=== PATIENT | male | born 1935 | race Caucasian/White ===

== ENCOUNTER 2016-07-10 09:56 | Emergency (ER) | payer BC ==
[~2016-07-10] VITALS: Ht 167.6 cm; Wt 72.6 kg
--- NOTE | 2016-07-10 11:14 | NUR ---
dr moore explained ct scan results to patient. PMD CALLED BY DR MOORE - PHONE REPORT ON SCAN RESULTS RENDERED. PT TO SEE PMD ON JUL [id number]. DISC COPY AND CT SCAN REPORT RENDERED, REPORT GIVEN TO EMT , D/CD HOME VIA PRIVATE AMBULANCE IN STABLE CONDITION. PT REMAINS AWAKE, ALERT AND VERBALLY RESPONSIVE.
[2016-07-10 11:18] VITALS: BP 145/72
== END 2016-07-10 11:19 | disposition home or self-care (01) ==
LOC: ER 09:56
DX: S09.90XA Unspecified injury of head, initial encounter (principal); R51 Headache; I10 Essential (primary) hypertension; W18.30XA Fall on same level, unspecified, initial encounter; Y93.89 Activity, other specified; Y99.8 Other external cause status; Y92.89 Other specified places as the place of occurrence of the external cause
CPT/HCPCS: 70450; A4663

== ENCOUNTER 2016-07-15 09:01 | Emergency (ER) | payer BC ==
[~2016-07-15] VITALS: Ht 162.6 cm; Wt 62.6 kg
[2016-07-15] MEDS ORDERED: SENN8.6T73 PO (09:39)
[2016-07-15] MEDS ORDERED: TRAZ-144 PO (09:39)
[2016-07-15] MEDS ORDERED: LOSA25TA13 PO (09:39)
[2016-07-15] MEDS ORDERED: [UNRECOGNIZED DRUG - OTHER] IM (09:39)
[2016-07-15] MEDS ORDERED: VITAMIN A AND D TOP (09:39)
[2016-07-15] MEDS ORDERED: MENT113O TOP (09:39)
[2016-07-15] MEDS ORDERED: LATA2.5D7 OP (09:39)
[2016-07-15] MEDS ORDERED: LOPE2CAP40 PO (09:39)
[2016-07-15] MEDS ORDERED: PRED10TA PO (09:39)
[2016-07-15] MEDS ORDERED: HYDR-552 PO (09:39)
[2016-07-15] MEDS ORDERED: CLOB15OI8 TOP (09:39)
[2016-07-15] MEDS ORDERED: NIAC500T7 PO (09:39)
[2016-07-15] MEDS ORDERED: ACET-2154 PO (09:39)
[2016-07-15] MEDS ORDERED: FINA5TAB11 PO (09:39)
[2016-07-15] MEDS ORDERED: [UNRECOGNIZED DRUG - CODE] PO (09:39)
[2016-07-15] MEDS ORDERED: FAMO20TA8 PO (09:39)
[2016-07-15] MEDS ORDERED: BRIM5DRO2 OP (09:39)
[2016-07-15] MEDS ORDERED: DOXY100C2 PO (09:39)
[2016-07-15] MEDS ORDERED: GUAI-925 PO (09:39)
[2016-07-15] MEDS ORDERED: CA C PO (09:39)
[2016-07-15] MEDS ORDERED: MAGN400O4 PO (09:39)
[2016-07-15] MEDS ORDERED: ZOLP5TAB2 PO (09:39)
--- NOTE | 2016-07-15 12:04 | NUR ---
Patient discharged to home in stable conditon. Written and verbal after care instructions given. Patient verbalizes understanding of instructions.pt wheel chaired to car. pt caregiver accompanied with pt. copies and cd of the images provided per request. pt will follow up with neurologist.
[2016-07-15 12:08] VITALS: BP 101/65
== END 2016-07-15 12:09 | disposition home or self-care (01) ==
LOC: ER 09:01
DX: M54.5 Low back pain (principal); I10 Essential (primary) hypertension; R51 Headache
CPT/HCPCS: 70450; 72125; 72131; 73200; A4663

== ENCOUNTER 2016-07-18 09:49 | Inpatient (IN) | payer BC ==
[~2016-07-18] VITALS: Ht 172.7 cm; Wt 70.3 kg
[~2016-07-18 09:49] MED LIST: ACET-2154 PO; BRIM5DRO2 OP; CA C PO; CLOB15OI8 TOP; DOXY100C2 PO; FAMO20TA8 PO; FINA5TAB11 PO; GUAI-925 PO; HYDR-552 PO; LATA2.5D7 OP; LOPE2CAP40 PO; LOSA25TA13 PO; MAGN400O4 PO; MENT113O TOP; NIAC500T7 PO; PRED10TA PO; SENN8.6T73 PO; TRAZ-144 PO; VITAMIN A AND D TOP; ZOLP5TAB2 PO; [UNRECOGNIZED DRUG - CODE] PO; [UNRECOGNIZED DRUG - OTHER] IM
[2016-07-18] MEDS ORDERED: BRIM5DRO2 EACHEYE (10:23)
[2016-07-18] MEDS ORDERED: [UNRECOGNIZED DRUG - CODE] PO (10:23)
[2016-07-18 10:43] LABS: BASOPHILS # (AUTO) 0.1 K/uL (0.0-8.0); BASOPHILS % (AUTO) 0.3 % (0.0-2.0); EOSINOPHILS # (AUTO) 0.1 K/uL (0.0-0.7); EOSINOPHILS % (AUTO) 0.6 % (0.0-7.0); HEMATOCRIT 37.4 % (36.7-47.1); HEMOGLOBIN 13.2 g/dL (12.5-16.3); LYMPHOCYTES # (AUTO) 1.6 K/uL (20.0-40.0); LYMPHOCYTES % (AUTO) 8.9 % (20.5-51.5); MEAN CORPUSCULAR HEMOGLOBIN 32.9 uug (23.8-33.4); MEAN CORPUSCULAR HGB CONC 35 g/dL (32.5-36.3); MEAN CORPUSCULAR VOLUME 93.2 fL (73.0-96.2); MONOCYTES # (AUTO) 0.2 K/uL (2.0-10.0); MONOCYTES % (AUTO) 1.2 % (0.0-11.0); NEUTROPHILS # (AUTO) 16.5 K/uL (1.8-8.9); PLATELET COUNT (AUTO) 254 K/uL (152-348); RED BLOOD CELL COUNT(AUTO) 4.02 MIL/uL (4.06-5.63); RED CELL DISTRIBUTION WIDTH 13.5 % (12.1-16.2); WHITE BLOOD COUNT (AUTO) 18.5 K/uL (3.6-10.2)
[2016-07-18 10:50] LABS: CALCIUM 8.5 mg/dL (8.5-10.1); CREATININE 0.9 mg/dL (0.6-1.3); POTASSIUM 3.8 mmol/L (3.5-5.1)
[2016-07-18 10:58] LABS: TROPONIN I < 0.017 ng/mL (0.00-0.056)
[2016-07-18 11:03] LABS: BILIRUBIN,DIRECT 0.2 mg/dL (0.0-0.2); BILIRUBIN,TOTAL 0.8 mg/dL (0.2-1.0); TOTAL PROTEIN, SERUM 5.8 g/dL (6.4-8.2)
[2016-07-18 11:06] LABS: LACTIC ACID 1.9 mmol/L (0.4-2.0)
[2016-07-18] MEDS ORDERED: PIPERACILLIN SODIUM/TAZOBACTAM 3.375 G in IV DEXTROSE 5% 50 ML IV ONE (11:15)
[2016-07-18 11:22] LABS: BAND % (MANUAL) 15 % (0-10); LYMPHOCYTES % (MANUAL) 12 % (20-40); MONOCYTES % (MANUAL) 3 % (2-10); NEUTROPHILS % (MANUAL) 70 % (42-75)
[2016-07-18 11:23] LABS: PLATELET ESTIMATE ADEQUATE
[2016-07-18 11:30] LABS: *BILIRUBIN,URIN NEGATIVE (NEGATIVE); *BLOOD, URINE Trace-intact (NEGATIVE); *CLARITY,URINE CLEAR (CLEAR); *COLOR,URINE YELLOW (YELLOW); *KETONES,URINE NEGATIVE (NEGATIVE); *PROTEIN,URINE TRACE (NEGATIVE); NITRITE, URINE NEGATIVE (NEGATIVE); UGLUCOSE NEGATIVE (NEGATIVE)
[2016-07-18] MEDS ORDERED: IV NORMAL SALINE 1000 ML BAG IV ONE (11:30)
[2016-07-18] MEDS ORDERED: PIPERACILLIN/TAZOBACTAM/D5W 50 ML IV ONE (11:36)
[2016-07-18 11:43] LABS: LEUKOCYTE ESTERASE ,URINE TRACE (NEGATIVE)
[2016-07-18 11:44] LABS: BACTERIA,URINE MODERATE /HPF (NONE SEEN); SQUAMOUS EPITHELIAL CELL,UR FEW /HPF (NONE SEEN)
[2016-07-18 11:45] LABS: MUCUS,URINE FEW /LPF (0-FEW)
[2016-07-18] MEDS ORDERED: HYDROCORTISONE SOD SUCCINATE 100 MG/2 ML VIAL IV ONE ×2 (11:45→12:01)
[2016-07-18] MEDS ORDERED: LEVOFLOXACIN 750 MG/D5W 150 ML PIGGYBACK IV ONE (12:00)
[2016-07-18] MEDS ORDERED: LEVOFLOXACIN 750MG/D5W 150 ML IV ONE (12:42)
[2016-07-18] MEDS ORDERED: HYDROCODONE/APAP 10-325 MG TABLET PO PRN (13:15)
[2016-07-18] MEDS ORDERED: ZOLPIDEM 5 MG TABLET PO SCH (13:15)
[2016-07-18] MEDS ORDERED: ACETAMINOPHEN 325 MG TABLET PO PRN (13:15)
[2016-07-18] MEDS ORDERED: SENNOSIDES 1 TABLET PO SCH (13:15)
[2016-07-18] MEDS ORDERED: HYDROCODONE/APAP 5-325MG TABLET PO PRN (13:15)
[2016-07-18] MEDS ORDERED: ACETAMINOPHEN 325 MG TABLET PO SCH (13:15)
[2016-07-18] MEDS ORDERED: ZOLPIDEM 5 MG TABLET PO PRN (13:15)
[2016-07-18] MEDS ORDERED: ONDANSETRON 4 MG/2 ML VIAL IV PRN (13:15)
[2016-07-18] MEDS ORDERED: Z GUARD REMEDY PASTE 57 GM TUBE TOP PRN (13:15)
[2016-07-18] MEDS ORDERED: MAGNESIUM HYDROXIDE 30 ML LIQUID UDC PO PRN (13:15)
[2016-07-18] MEDS: IV NS 1000 ML 1,000 ML IV PRN (15:11)
[2016-07-18 16:00] VITALS: BP 113/66
[2016-07-18] MEDS ORDERED: VANCOMYCIN IV 1 G in PREMIXED 0 EACH IV SCH ×2 (16:30→18:00)
[2016-07-18] MEDS ORDERED: NIACINAMIDE 500 MG TABLET PO SCH (17:00)
[2016-07-18] MEDS ORDERED: NIACIN 500 MG TABLET PO SCH (17:00)
[2016-07-18] MEDS ORDERED: PIPERACILLIN SODIUM/TAZOBACTAM 4.5 G in IV DEXTROSE 5% 50 ML IV SCH (17:00)
[2016-07-18] MEDS ORDERED: FLUCONAZOLE 200 MG/NS 100ML IV 200 MG in PREMIXED 1 EACH IV SCH (17:00)
[2016-07-18] MEDS: FAMOTIDINE 20 MG TABLET PO SCH (17:52)
[2016-07-18] MEDS: NIACIN 500 MG TABLET PO SCH (17:52)
[2016-07-18] MEDS: CLOBETASOL PROPIONATE 0.05% OINT 15 GM TUBE TOP SCH (17:53)
[2016-07-18] MEDS ORDERED: FLUCONAZOLE 200 MG/NS 100ML IV 100 MG in PREMIXED 1 EACH IV SCH (19:30)
[2016-07-18] MEDS ORDERED: LATANOPROST OPHT DROP 2.5 ML BOTTLE OP SCH (21:00)
[2016-07-18] MEDS ORDERED: LATANOPROST OPHT DROP 2.5 ML BOTTLE EACHEYE SCH (21:00)
[2016-07-18] MEDS: NYSTATIN SUSPENSION 5 ML LIQUID UDC PO SCH (21:56)
[2016-07-18] MEDS: PIPERACILLIN SODIUM/TAZOBACTAM 4.5 G in IV DEXTROSE 5% 50 ML IV SCH (23:04)
[2016-07-19 00:36] VITALS: BP 113/62
[2016-07-19 04:00] VITALS: BP 160/96
[2016-07-19] MEDS: PIPERACILLIN SODIUM/TAZOBACTAM 4.5 G in IV DEXTROSE 5% 50 ML IV SCH ×2 (05:03→12:37)
[2016-07-19] MEDS: IV NS 1000 ML 1,000 ML IV PRN (06:22)
[2016-07-19 06:43] LABS: EOSINOPHILS # (AUTO) 0.1 K/uL (0.0-0.7); EOSINOPHILS % (AUTO) 0.4 % (0.0-7.0); HEMATOCRIT 39.2 % (36.7-47.1); HEMOGLOBIN 13.5 g/dL (12.5-16.3); LYMPHOCYTES # (AUTO) 2.4 K/uL (20.0-40.0); LYMPHOCYTES % (AUTO) 14.1 % (20.5-51.5); MEAN CORPUSCULAR HEMOGLOBIN 32.1 uug (23.8-33.4); MEAN CORPUSCULAR HGB CONC 34 g/dL (32.5-36.3); MEAN CORPUSCULAR VOLUME 93.4 fL (73.0-96.2); MONOCYTES # (AUTO) 1.2 K/uL (2.0-10.0); MONOCYTES % (AUTO) 7.2 % (0.0-11.0); NEUTROPHILS # (AUTO) 13.4 K/uL (1.8-8.9); NEUTROPHILS % (AUTO) 78.3 % (38.5-71.5); PLATELET COUNT (AUTO) 240 K/uL (152-348); RED CELL DISTRIBUTION WIDTH 13.4 % (12.1-16.2); WHITE BLOOD COUNT (AUTO) 17.1 K/uL (3.6-10.2)
[2016-07-19] MEDS ORDERED: PANTOPRAZOLE SODIUM 40 MG TABLET.DR PO SCH (07:00)
[2016-07-19 07:14] LABS: CALCIUM 8.4 mg/dL (8.5-10.1); CREATININE 1.1 mg/dL (0.6-1.3); MAGNESIUM 2.1 mg/dL (1.8-2.4); POTASSIUM 3.7 mmol/L (3.5-5.1)
[2016-07-19 07:42] LABS: THYROID STIMULATING HORMONE 0.561 mIU/mL (0.358-3.740)
[2016-07-19] MEDS: NIACIN 500 MG TABLET PO SCH (08:21)
[2016-07-19] MEDS: FAMOTIDINE 20 MG TABLET PO SCH (08:21)
[2016-07-19] MEDS: NYSTATIN SUSPENSION 5 ML LIQUID UDC PO SCH ×2 (08:21→12:37)
[2016-07-19] MEDS: CLOBETASOL PROPIONATE 0.05% OINT 15 GM TUBE TOP SCH (08:22)
[2016-07-19] MEDS ORDERED: FINASTERIDE 5 MG TABLET PO SCH (09:00)
[2016-07-19] MEDS ORDERED: predniSONE 10 MG TABLET PO SCH (09:00)
[2016-07-19 12:00] VITALS: BP 117/62
[2016-07-19] MEDS ORDERED: VANCOMYCIN IV 1 G in PREMIXED 0 EACH IV SCH (12:00)
[2016-07-19] MEDS ORDERED: LEVOFLOXACIN 750MG/D5W 750 MG in PREMIXED 1 EACH IV SCH (12:00)
[2016-07-19 12:02] VITALS: BP 137/78
[2016-07-19] MEDS ORDERED: CLOTRIMAZOLE 1% CREAM 30 GM TUBE TOP SCH (13:00)
[2016-07-19] MEDS ORDERED: MENT71OI TOP (13:09)
[2016-07-19] MEDS ORDERED: CLOT30CR24 TOP (13:09)
[2016-07-19] MEDS ORDERED: HYDR-3326 PO (13:09)
[2016-07-19] MEDS ORDERED: Nystatin PO (13:09)
[2016-07-19] MEDS ORDERED: PIPE4.5V6 IV (13:10)
[2016-07-19] MEDS ORDERED: FLUC100P12 IV (13:10)
[2016-07-19] MEDS ORDERED: RXVAN XX (13:12)
[2016-07-19] MEDS ORDERED: Acetaminophen PO (13:12)
== END 2016-07-19 14:25 | disposition short-term general hospital (02) | DRG 871 ==
LOC: ER 09:49 → TELE 12:47
DX: A41.9 Sepsis, unspecified organism (principal); G93.40 Encephalopathy, unspecified; J18.9 Pneumonia, unspecified organism; I62.03 Nontraumatic chronic subdural hemorrhage; G91.2 (Idiopathic) normal pressure hydrocephalus; N39.0 Urinary tract infection, site not specified; L03.116 Cellulitis of left lower limb; L03.115 Cellulitis of right lower limb; L03.119 Cellulitis of unspecified part of limb; N12 Tubulo-interstitial nephritis, not specified as acute or chronic; I82.621 Acute embolism and thrombosis of deep veins of right upper extremity; R55 Syncope and collapse; G89.29 Other chronic pain; B35.4 Tinea corporis; I11.0 Hypertensive heart disease with heart failure; Z98.2 Presence of cerebrospinal fluid drainage device; F29 Unspecified psychosis not due to a substance or known physiological condition; R53.1 Weakness; R73.9 Hyperglycemia, unspecified; Z91.81 History of falling; I50.9 Heart failure, unspecified; N31.9 Neuromuscular dysfunction of bladder, unspecified; Z79.52 Long term (current) use of systemic steroids; B96.89 Other specified bacterial agents as the cause of diseases classified elsewhere; R65.20 Severe sepsis without septic shock
CPT/HCPCS: 36415; 70030-TC; 70450; 71010; 76770; 83605; 83735; 84100; 84443; 85025; 85730; 87040; 87077; 87086; 93005; 93880; A4663; J1450; J1720; J1956; J2543; J3370; J7030; J7060; J7512